=== PATIENT | male | born 1990 | race Caucasian/White ===

== ENCOUNTER 2016-12-24 18:48 | Emergency (ER) | payer BC ==
[2016-12-24] MEDS ORDERED: Albuterol/Ipratropium 3.0-0.5 MG/3 ML Neb Soln NEB ONE (18:59)
[2016-12-24] MEDS ORDERED: methylPREDNISolone Sodium Succinate 125 MG/2 ML SDV IVPUSH ONE (19:01)
[2016-12-24] MEDS ORDERED: Sodium Chloride 0.9% 1,000 ML IV ONE (19:01)
--- NOTE | 2016-12-24 19:32 | EDM.PDOC ---
ED HPI GENERAL MEDICAL PROBLEM - General Chief Complaint: Respiratory Problem Stated Complaint: NEEDS INHALER MEDICATION Time Seen by Provider: 12/24/16 19:05 Source of Information: Reports: Patient History Limitations: Reports: No Limitations - History of Present Illness INITIAL COMMENTS - FREE TEXT/NARRATIVE: History of present illness: [26-year-old male comes in with desire to have an inhaler refilled. Patient is a known asthmatic and indicates that he has random acute exacerbations.] Review of systems: As per history of present illness and below otherwise all systems reviewed and negative. Past medical history: As per history of present illness and as reviewed below otherwise noncontributory. Surgical history: As per history of present illness and as reviewed below otherwise noncontributory. Social history: No reported history of drug or alcohol abuse. Family history: As per history of present illness and as reviewed below otherwise noncontributory. Physical exam: HEENT: Atraumatic, normocephalic, pupils reactive, negative for conjunctival pallor or scleral icterus, mucous membranes moist, throat clear, neck supple, nontender, trachea midline. Lungs: Audible inspiratory wheeze, patient type and needing minimal amounts of air, increased work of breathing noted. Patient able to make complete sentences but indicates that he does feel somewhat short of breath, chest nontender. Heart: S1S2, regular, negative for clicks, rubs, or JVD. Abdomen: Soft, nondistended, nontender. Negative for masses or hepatosplenomegaly. Negative for costovertebral tenderness. Pelvis: Stable nontender. Genitourinary: Deferred. Rectal: Deferred. Extremities: Atraumatic, negative for cords or calf pain. Neurovascular unremarkable. Neuro: Awake, alert, oriented. Cranial nerves II through XII unremarkable. Cerebellum unremarkable. Motor and sensory unremarkable throughout. Exam nonfocal. Patient significantly improved after Solu-Medrol and DuoNeb patient indicates he is ready for discharge. Diagnostics: [] Therapeutics: [DuraNeb, Solumedrol, IV fluid] Impression: [Asthma acute on chronic] Plan: [Solu-Medrol, refill of albuterol follow-up with PCP] Definitive disposition and diagnosis as appropriate pending reevaluation and review of above. chest Pain Score (Numeric/FACES): 5 - Related Data Allergies Allergy/AdvReac Type Severity Reaction Status Date / Time No Known Allergies Allergy Verified 12/24/16 18:54 Home Meds: Home Meds Albuterol Sulfate [Proair Hfa] 2 puff IH Q6HR #1 hfa.aer.ad 12/24/16 [Rx] Albuterol [Ventolin HFA] ASDIRECTED 12/24/16 [History] methylPREDNISolone [Medrol] 4 mg PO DAILY #21 tab.ds.pk 12/24/16 [Rx] Past Medical History - Past Health History Medical/Surgical History: Denies Medical/Surgical History Respiratory History: Reports: Asthma - Past Surgical History Musculoskeletal Surgical History: Reports: Other (See Below) Social & Family History - Family History Family Medical History: Noncontributory - Tobacco Use Smoking Status *Q: Never Smoker - Recreational Drug Use Recreational Drug Use: No ED ROS GENERAL - Review of Systems Review Of Systems: See Below (See history of present illness) ED EXAM, GENERAL - Physical Exam Exam: See Below (See history of present illness) Course - Vital Signs Last Recorded V/S: Last Vital Signs Temp 36.3 C 12/24/16 18:55 Pulse 86 12/24/16 20:00 Resp 18 12/24/16 20:00 BP 123/70 12/24/16 20:00 Pulse Ox 96 12/24/16 20:00 - Orders/Labs/Meds Orders: Active Orders 24 hr Category Date Time Status RT Aerosol Therapy [RC] ASDIRECTED Care 12/24/16 19:00 Active Meds: Medications Discontinued Medications Generic Name Dose Route Start Last Admin Trade Name Freq PRN Reason Stop Dose Admin Albuterol/Ipratropium 3 ml 12/24/16 18:59 12/24/16 19:10 Duoneb 3.0-0.5 Mg/3 Ml NEB 12/24/16 19:00 3 ml ONETIME ONE Administration Sodium Chloride 1,000 mls @ 999 mls/hr 12/24/16 19:01 12/24/16 19:15 Normal Saline IV 12/24/16 20:01 999 mls/hr STAT ONE Administration Methylprednisolone Sodium Succinate 125 mg 12/24/16 19:01 12/24/16 19:19 Solu-Medrol IVPUSH 12/24/16 19:02 125 mg ONETIME ONE Administration Departure - Departure Time of Disposition: 20:23 Disposition: Home, Self-Care 01 Condition: Good Clinical Impression: Exacerbation of asthma - Discharge Information Prescriptions: Albuterol Sulfate [Proair Hfa] 2 puff IH Q6HR #1 hfa.aer.ad methylPREDNISolone [Medrol] 4 mg PO DAILY #21 tab.ds.pk Instructions: Asthma, Adult Forms: ED Department Discharge Additional Instructions: The following information is given to patients seen in the emergency department who are being discharged to home. This information is to outline your options for follow-up care. We provide all patients seen in our emergency department with a follow-up referral. The need for follow-up, as well as the timing and circumstances, are variable depending upon the specifics of your emergency department visit. If you don't have a primary care physician on staff, we will provide you with a referral. We always advise you to contact your personal physician following an emergency department visit to inform them of the circumstance of the visit and for follow-up with them and/or the need for any referrals to a consulting specialist. The emergency department will also refer you to a specialist when appropriate. This referral assures that you have the opportunity for follow-up care with a specialist. All of these measure are taken in an effort to provide you with optimal care, which includes your follow-up. Under all circumstances we always encourage you to contact your private physician who remains a resource for coordinating your care. When calling for follow-up care, please make the office aware that this follow-up is from your recent emergency room visit. If for any reason you are refused follow-up, please contact the [facility] Emergency Department at and asked to speak to the emergency department charge nurse. Take medication as directed Follow up with PCP 1-2 days discussed Return to ED as needed as discussed - My Orders Last 24 Hours: My Active Orders 12/24/16 19:00 RT Aerosol Therapy [RC] ASDIRECTED - Assessment/Plan Last 24 Hours: My Active Orders 12/24/16 19:00 RT Aerosol Therapy [RC] ASDIRECTED
[2016-12-24 20:41] VITALS: BP 120/70
== END 2016-12-24 20:36 | disposition home or self-care (01) ==
LOC: MW.ED 18:48
DX: J45.901 Unspecified asthma with (acute) exacerbation (principal)
CPT/HCPCS: 96361; 96374; 99284; J2930; J7040; 99282